=== PATIENT | female | born 1980 | race Caucasian/White ===

== ENCOUNTER → 2021-01-21 | Outpatient (CLI) | payer BC, OTHER ==
[~2021-01-21] MED LIST: LEVOFLOXACIN250 MG PO
== END ==
LOC: US 01-19 09:30 → KOH-I 08:00
DX: R10.11 Right upper quadrant pain (principal)
CPT/HCPCS: 76705

== ENCOUNTER 2021-03-11 16:27 | Inpatient (IN) | payer BC, OTHER ==
[2021-03-11 18:02] LABS: RED BLOOD COUNT 3.96 M/UL (4.00-5.10); WHITE BLOOD COUNT 7.9 K/UL (4.5-11.0)
[2021-03-12] MEDS ORDERED: CLARITIN10 MG PO ×2 (02:44)
[2021-03-12] MEDS ORDERED: FLONASE ALLER15.8 ML (02:45)
[2021-03-12] MEDS ORDERED: PRENATAL TABLE1 EAC1 PO (02:45)
[2021-03-13] MEDS ORDERED: HYDROCODON-ACE1 EAC6 PO (10:10)
[2021-03-13] MEDS ORDERED: COLACE 100MG C100 MG PO (10:10)
[2021-03-13] MEDS ORDERED: IBUPROFEN600 MG PO (10:10)
[2021-03-14] MEDS ORDERED: PROMETHAZINE12.5 M1 PO (11:49)
== END 2021-03-14 17:25 | disposition home or self-care (01) | DRG 788 ==
LOC: GENOP 16:27 → OB 17:10
PROVIDERS: Obstetrics & Gynecology; ADMIT Obstetrics & Gynecology
PROC: 3E0P7VZ Introduction of Hormone into Female Reproductive, Via Natural or Artificial Opening (ICD-10-PCS; 2021-03-13)
PROC: 10D00Z1 Extraction of Products of Conception, Low, Open Approach (ICD-10-PCS; principal; 2021-03-13 09:14)
DX: O99.892 Other specified diseases and conditions complicating childbirth (principal); G43.909 Migraine, unspecified, not intractable, without status migrainosus; O99.284 Endocrine, nutritional and metabolic diseases complicating childbirth; E78.5 Hyperlipidemia, unspecified; O99.214 Obesity complicating childbirth; Z37.0 Single live birth; Z3A.38 38 weeks gestation of pregnancy; Z87.440 Personal history of urinary (tract) infections; E66.9 Obesity, unspecified
CPT/HCPCS: 36415; 81001; 82800; 85014; 85018; 85025; C9113; J0690; J1170; J1200; J2274; J2370; J2405; J2590; J2704; J7120